=== PATIENT | male | born 1985 | race Two or more races ===

== ENCOUNTER 2016-12-16 05:16 | Emergency (ER) | payer MEDICAID ==
[~2016-12-16] VITALS: Ht 172.7 cm; Wt 85.7 kg
[2016-12-16 05:40] VITALS: BP 134/85
[2016-12-16] MEDS ORDERED: BACITRACIN TOP OINT 1 UD PKG TOP ONE (06:45)
== END 2016-12-16 07:18 | disposition home or self-care (01) ==
LOC: ER 05:25
DX: S01.21XA Laceration without foreign body of nose, initial encounter (principal); S13.4XXA Sprain of ligaments of cervical spine, initial encounter; V43.62XA Car passenger injured in collision with other type car in traffic accident, initial encounter; Y93.89 Activity, other specified; Y99.8 Other external cause status; Y92.89 Other specified places as the place of occurrence of the external cause
CPT/HCPCS: 12011